=== PATIENT | male | born 1990 | race African-American/Black ===

== ENCOUNTER 2019-12-23 03:22 | Emergency (ER) | payer BC ==
[~2019-12-23] VITALS: Ht 177.8 cm; Wt 89.8 kg
[2019-12-23] MEDS ORDERED: OXYCODON-ACETA1 EAC1 PO (03:41)
[2019-12-23 03:47] VITALS: BP 138/90
== END 2019-12-23 03:48 | disposition home or self-care (01) ==
LOC: M.ERS 03:22
DX: K08.89 Other specified disorders of teeth and supporting structures (principal); F17.210 Nicotine dependence, cigarettes, uncomplicated